=== PATIENT | female | born 1995 | race Two or more races ===

== ENCOUNTER → 2023-07-24 | Outpatient (CLI) | payer OTHER ==
[2023-07-24 18:10] LABS: FREE T4 0.68 NG/DL (0.89-1.76); THYROID STIMULATING HORMONE 4.638 uIU/ML (0.55-4.78)
[2023-07-24 18:18] LABS: HEMOGLOBIN 9.4 g/dl (12.0-15.5); MEAN CORPUSCULAR HEMOGLOBIN 27.2 pg (27.0-33.0); MEAN CORPUSCULAR HGB CONC 32.4 g/dl (32.0-36.5); MEAN CORPUSCULAR VOLUME 83.8 fl (80.0-96.0); PLATELET COUNT, AUTOMATED 287 10^3/uL (150-450); RED BLOOD COUNT 3.46 10^6/uL (4.00-5.40); WHITE BLOOD COUNT 8.2 10^3/uL (4.0-10.0)
[2023-07-24 18:40] LABS: HIV 1&2 SCREEN NEGATIVE (NEGATIVE)
[2023-07-24 18:48] LABS: HEPATITIS C VIRUS ABY INDEX 0.05 INDEX (<0.8)
[2023-07-24 19:28] LABS: CHLAMYDIA DNA AMPLIFICATION NEGATIVE (NEGATIVE); GC DNA AMPLIFICATION NEGATIVE (NEGATIVE)
== END ==
LOC: M PLALAB 14:54
PROVIDERS: ATTEND Advanced Practice Midwife
DX: Z34.81 Encounter for supervision of other normal pregnancy, first trimester (principal)

== ENCOUNTER → 2023-08-22 | Outpatient (REF) | payer OTHER ==
[2023-08-22 16:35] LABS: PERCENT SATURATION 14.1 % (13.2-45.0)
[2023-08-22 16:37] LABS: FERRITIN 1.7 NG/ML (7.3-270.7)
== END ==
LOC: M LABDRAWP 15:39
PROVIDERS: ATTEND Obstetrics & Gynecology
DX: D64.9 Anemia, unspecified (principal)

== ENCOUNTER → 2023-10-05 | Outpatient (CLI) | payer OTHER | LOC: M WHC 08:12 | PROVIDERS: ATTEND Obstetrics & Gynecology | DX: Z34.92 Encounter for supervision of normal pregnancy, unspecified, second trimester (principal) ==

== ENCOUNTER → 2023-10-24 | Outpatient (CLI) | payer OTHER | LOC: M CARPUL 08:11 | PROVIDERS: ATTEND Nurse Practitioner Adult Health | DX: R01.1 Cardiac murmur, unspecified (principal) ==

== ENCOUNTER → 2023-11-14 | Outpatient (CLI) | payer OTHER | LOC: M WHC 11:08 | PROVIDERS: ATTEND Obstetrics & Gynecology | DX: Z34.82 Encounter for supervision of other normal pregnancy, second trimester (principal) ==

== ENCOUNTER → 2023-11-28 | Outpatient (CLI) | payer OTHER ==
[2023-11-28 18:21] LABS: HEMATOCRIT 24.7 % (36.0-47.0); HEMOGLOBIN 7.8 g/dl (12.0-15.5); MEAN CORPUSCULAR HEMOGLOBIN 26.6 pg (27.0-33.0); MEAN CORPUSCULAR HGB CONC 31.6 g/dl (32.0-36.5); MEAN CORPUSCULAR VOLUME 84.3 fl (80.0-96.0); PLATELET COUNT, AUTOMATED 376 10^3/uL (150-450); RED BLOOD COUNT 2.93 10^6/uL (4.00-5.40); WHITE BLOOD COUNT 9.3 10^3/uL (4.0-10.0)
[2023-11-28 18:53] LABS: THYROID STIMULATING HORMONE 6.46 uIU/ML (0.55-4.78)
[2023-11-28 18:54] LABS: FREE T4 0.77 NG/DL (0.89-1.76)
[2023-11-28 22:19] LABS: GC DNA AMPLIFICATION NEGATIVE (NEGATIVE)
== END ==
LOC: M PLALAB 15:17
PROVIDERS: ATTEND Obstetrics & Gynecology
DX: Z34.82 Encounter for supervision of other normal pregnancy, second trimester (principal); E03.9 Hypothyroidism, unspecified

== ENCOUNTER → 2024-01-23 | Outpatient (CLI) | payer OTHER ==
[2024-01-23 16:20] LABS: ALBUMIN 2.6 G/DL (3.2-5.2); ALKALINE PHOSPHATASE 182 U/L (46-116); ALT/SGPT 14 U/L (7.0-40); AST/SGOT 14 U/L (<34); BILIRUBIN,DIRECT < 0.1 MG/DL (<0.4); BILIRUBIN,TOTAL 0.5 MG/DL (0.3-1.2); TOTAL PROTEIN 5.9 G/DL (5.7-8.2)
== END ==
LOC: M PLALAB 12:14
PROVIDERS: ATTEND Advanced Practice Midwife
DX: Z34.83 Encounter for supervision of other normal pregnancy, third trimester (principal)

== ENCOUNTER → 2024-01-31 | Outpatient (REF) | payer OTHER | LOC: M PLALAB 14:01 | PROVIDERS: ATTEND Obstetrics & Gynecology | DX: Z36.85 Encounter for antenatal screening for Streptococcus B (principal); Z3A.36 36 weeks gestation of pregnancy ==

== ENCOUNTER → 2024-06-16 | Outpatient (CLI) | payer OTHER ==
[~2024-06-16] MED LIST: AMOX875T; LEVO100T5; LEXA1TAB2; PRENTAB9 PO; VYVA40CA3 PO
== END ==
LOC: M PLALAB 14:40
PROVIDERS: ATTEND Nurse Practitioner Adult Health
DX: D64.9 Anemia, unspecified (principal)

== ENCOUNTER 2024-06-18 11:29 | Outpatient (CLI) | payer OTHER ==
[~2024-06-18] VITALS: Ht 160 cm; Wt 78.0 kg
[~2024-06-18 11:29] MED LIST changes: -VYVA40CA3 PO
[2024-06-18 11:45] VITALS: BP 125/72; O2SAT 100
[2024-06-18] MEDS ORDERED: VYVA40CA3 PO (12:46)
[2024-06-18 13:30] VITALS: BP 132/80; TEMP 97.7; O2SAT 100
[2024-06-18 14:45] VITALS: BP 129/86; TEMP 97.7
[2024-06-18 16:09] VITALS: BP 145/99; TEMP 97.9; O2SAT 100
== END 2024-06-18 16:30 ==
LOC: M INFU 11:29
PROVIDERS: ATTEND Nurse Practitioner Adult Health
DX: D64.9 Anemia, unspecified (principal); Z88.8 Allergy status to other drugs, medicaments and biological substances
CPT/HCPCS: 36430; 86920; P9016

== ENCOUNTER → 2024-12-01 | Outpatient (CLI) | payer OTHER ==
[~2024-12-01] MED LIST changes: +VYVA40CA3 PO
[2024-12-01 14:12] LABS: BASO % 0.4 % (0.0-1.0); EOS # 0.1 10^3/uL (0.0-0.5); EOS % 2.6 % (0.0-3.0); HEMATOCRIT 29.7 % (36.0-47.0); LYMPH # 1.6 10^3/uL (1.5-5.0); LYMPH % 31.5 % (24.0-44.0); MEAN CORPUSCULAR HEMOGLOBIN 23.7 pg (27.0-33.0); MEAN CORPUSCULAR HGB CONC 30.3 g/dl (32.0-36.5); MEAN CORPUSCULAR VOLUME 78.2 fl (80.0-96.0); MONO # 0.3 10^3/uL (0.0-0.8); MONO % 5.5 % (2.0-8.0); NEUTROPHILS % 59.8 % (36.0-66.0); PLATELET COUNT, AUTOMATED 256 10^3/uL (150-450)
[2024-12-01 14:45] LABS: ALBUMIN 3.9 G/DL (3.2-5.2); BILIRUBIN,DIRECT 0.3 MG/DL (<0.4); PERCENT SATURATION 7.3 % (13.2-45.0); TOTAL PROTEIN 6.9 G/DL (5.7-8.2)
[2024-12-01 14:46] LABS: THYROID STIMULATING HORMONE 2.638 uIU/ML (0.55-4.78)
[2024-12-01 14:47] LABS: FREE T4 1.06 NG/DL (0.89-1.76)
== END ==
LOC: M RAD 13:19
PROVIDERS: ATTEND Nurse Practitioner Adult Health
DX: M54.50 Low back pain, unspecified (principal)

== ENCOUNTER 2024-12-30 11:48 | Outpatient (CLI) | payer OTHER ==
[~2024-12-30 11:48] MED LIST changes: +ALBUTEROL SULFATE 2.5MG/0.5ML INH CONCENTRATE NEB SOLN INH PRN; +EPINEPHrine INJ 1 MG/ML 1ML AMP IM PRN; +diphenhydrAMINE 50MG/ML VIAL IV PRN; +methylPREDNISolone 125MG 2ML VIAL IV PRN
[2024-12-30] MEDS ORDERED: NS (Normal Saline) 0.9% 1,000 ML IV SCH (12:15)
[2024-12-30] MEDS: FERRIC CARBOXYMALTOSE 750 MG (VIAL MATE) IN 100ML NS IV ONE (12:27)
[2024-12-30 12:53] VITALS: BP 134/84; O2SAT 100
== END 2024-12-30 12:50 ==
LOC: M INFU 11:48
PROVIDERS: ATTEND Nurse Practitioner Adult Health
DX: D50.9 Iron deficiency anemia, unspecified (principal); Z88.1 Allergy status to other antibiotic agents
CPT/HCPCS: 96365; J1439

== ENCOUNTER 2025-01-06 11:39 | Outpatient (CLI) | payer OTHER ==
[~2025-01-06] VITALS: Ht 160 cm; Wt 67.2 kg
[~2025-01-06 11:39] MED LIST changes: +NS (Normal Saline) 0.9% 1,000 ML IV SCH; -diphenhydrAMINE 50MG/ML VIAL IV PRN; -methylPREDNISolone 125MG 2ML VIAL IV PRN
[2025-01-06 11:50] VITALS: BP 135/71; O2SAT 97
[2025-01-06] MEDS: diphenhydrAMINE 50MG/ML VIAL IV PRN (12:15)
[2025-01-06] MEDS: methylPREDNISolone 125MG 2ML VIAL IV PRN (12:15)
[2025-01-06] MEDS: FERRIC CARBOXYMALTOSE 750 MG (VIAL MATE) IN 100ML NS IV ONE (12:29)
[2025-01-06 12:50] VITALS: BP 139/86; O2SAT 98
== END 2025-01-06 13:00 ==
LOC: M INFU 11:39
PROVIDERS: ATTEND Nurse Practitioner Adult Health
DX: D50.9 Iron deficiency anemia, unspecified (principal); Z88.1 Allergy status to other antibiotic agents
CPT/HCPCS: 96365; 96375; J1200; J1439; J2919